=== PATIENT | female | born 1960 | race Caucasian/White ===

== ENCOUNTER 2016-09-20 19:51 | Inpatient (IN) | payer MEDICAID ==
[~2016-09-20] VITALS: Ht 157.5 cm; Wt 49.1 kg
[~2016-09-20 19:51] MED LIST: ALBU8.5H3 INH; ALPR-475 PO; ASPI-515 PO; ASPI-614 PO; ASPI-650 PO; AZIT-14 PO; AZIT500T4 PO; CEFD300C2 PO; CLOP75TA22 PO; LORA-445 PO; MAGN400T26 PO; NICO1PAT10 TD; OXYC5TAB3 PO; POLY17PO5 PO; PRED10TA PO; PRED20TA PO; THYR30TA PO; TIOT4MIS3 INH
[2016-09-20] MEDS ORDERED: ALBUTEROL SULFATE 2.5 MG/3 ML NPPB ONE (20:30)
[2016-09-20] MEDS ORDERED: ASPIRIN 81 MG TABLET CHEW PO ONE (20:30)
[2016-09-20] MEDS ORDERED: ASPIRIN 81 MG TABLET CHEW ONE (20:30)
[2016-09-20] MEDS ORDERED: ALBUTEROL SULFATE 2.5 MG/3 ML ONE (20:30)
[2016-09-20 20:45] LABS: HEMOGLOBIN 13.1 g/dL (11.7-16.4)
[2016-09-20] MEDS ORDERED: SODIUM CHLORIDE FLUSH 10ML SYR IVF ONE (21:00)
[2016-09-20] MEDS ORDERED: KETOROLAC 30 MG/1 ML IVPush ONE (21:00)
[2016-09-20] MEDS ORDERED: DIAZEPAM 5 MG TABLET PO ONE (21:00)
[2016-09-20 21:01] LABS: ASPARTATE AMINO TRANSFERASE 13 U/L (15-37); BLOOD UREA NITROGEN 8 mg/dL (7-18)
[2016-09-20 21:10] LABS: IS PT STATUS REG ER OR PRE ER? YES
[2016-09-20] MEDS ORDERED: KETOROLAC 30 MG/1 ML ONE (21:15)
[2016-09-20] MEDS ORDERED: DIAZEPAM 5 MG TABLET ONE (21:15)
[2016-09-20] MEDS: SODIUM CHLORIDE 0.9% 1,000 ML IV SCH ×2 (22:17→23:47)
[2016-09-20] MEDS ORDERED: POLYETHYLENE GLYCOL 17 GM PACKET PO PRN (22:30)
[2016-09-20] MEDS ORDERED: DOCUSATE 100 MG CAPSULE PO PRN (22:30)
[2016-09-20] MEDS ORDERED: LORazepam 1MG TABLET PO PRN (22:30)
[2016-09-20] MEDS ORDERED: ONDANSETRON 2MG/ML, 2ML IVP PRN (22:30)
[2016-09-20] MEDS: HEPARIN 5,000 UNITS/ML, 1ML SQ SCH (22:30)
[2016-09-20] MEDS ORDERED: MORPHINE SULFATE 4 MG/ML, 1ML IVPush PRN (22:30)
[2016-09-20] MEDS ORDERED: BISACODYL 10 MG SUPP PR PRN (22:30)
[2016-09-20] MEDS ORDERED: ACETAMINOPHEN 325 MG TABLET PO PRN (22:30)
[2016-09-20] MEDS: GUAIFENESIN 200 MG TABLET PO SCH (23:00)
[2016-09-20 23:09] VITALS: BP 109/73
[2016-09-20] MEDS: DOXYCYCLINE 100 MG in DEXTROSE 5% 250 ML IV SCH (23:47)
[2016-09-21 00:19] LABS: DAU SCREEN DISCLAIMER
[2016-09-21] MEDS ORDERED: ALBUTEROL SULFATE 2.5 MG/3 ML NPPB PRN (01:00)
[2016-09-21 02:18] VITALS: BP 95/62
[2016-09-21] MEDS: ALBUTEROL/IPRATROPIUM 2.5MG/0.5MG, 3 ML NPPB SCH ×5 (02:30→20:39)
[2016-09-21 03:27] LABS: HEMOGLOBIN 11.9 g/dL (11.7-16.4)
[2016-09-21 03:28] LABS: DIFF TOTAL CELLS COUNTED 100 CELL DIFF
[2016-09-21 03:51] LABS: ASPARTATE AMINO TRANSFERASE 11 U/L (15-37); BLOOD UREA NITROGEN 10 mg/dL (7-18)
[2016-09-21 03:52] LABS: IS PT STATUS REG ER OR PRE ER? NO
[2016-09-21 03:55] LABS: VERIFY COUNTS? YES
[2016-09-21] MEDS: ASPIRIN 325 MG TABLET EC PO SCH (05:23)
[2016-09-21] MEDS: GUAIFENESIN 200 MG TABLET PO SCH ×4 (05:23→20:34)
[2016-09-21] MEDS: HEPARIN 5,000 UNITS/ML, 1ML SQ SCH ×3 (05:24→22:30)
[2016-09-21] MEDS ORDERED: PANTOPROZOLE 40MG TABLET PO SCH (07:30)
[2016-09-21 07:57] VITALS: BP 118/75
[2016-09-21] MEDS: THYROID 30 MG TABLET PO SCH (08:17)
[2016-09-21] MEDS ORDERED: REGADENOSON 0.4 MG/5 ML SYRINGE ONE (08:54)
[2016-09-21] MEDS: DOXYCYCLINE 100 MG in DEXTROSE 5% 250 ML IV SCH ×2 (11:12→23:06)
[2016-09-21 12:00] LABS: IS PT STATUS REG ER OR PRE ER? NO
[2016-09-21 15:28] VITALS: BP 108/74
[2016-09-21 19:43] VITALS: BP 102/74
[2016-09-21] MEDS: DIAZEPAM 5 MG TABLET PO PRN (19:55)
[2016-09-21] MEDS: DEXAMETHASONE 4 MG/ML, 1ML IVPush SCH (20:35)
[2016-09-22] MEDS: DEXAMETHASONE 4 MG/ML, 1ML IVPush SCH ×4 (02:22→20:32)
[2016-09-22 03:42] VITALS: BP 98/64
[2016-09-22 05:43] LABS: HEMOGLOBIN 12.6 g/dL (11.7-16.4)
[2016-09-22 05:53] LABS: BLOOD UREA NITROGEN 9 mg/dL (7-18)
[2016-09-22] MEDS: GUAIFENESIN 200 MG TABLET PO SCH ×4 (06:00→20:32)
[2016-09-22] MEDS: ASPIRIN 325 MG TABLET EC PO SCH (06:04)
[2016-09-22 06:57] VITALS: BP 107/76
[2016-09-22] MEDS: ALBUTEROL/IPRATROPIUM 2.5MG/0.5MG, 3 ML NPPB SCH ×4 (07:20→21:00)
[2016-09-22] MEDS: HEPARIN 5,000 UNITS/ML, 1ML SQ SCH ×3 (09:35→22:30)
[2016-09-22] MEDS: THYROID 30 MG TABLET PO SCH (09:36)
[2016-09-22] MEDS: DIAZEPAM 5 MG TABLET PO PRN (09:50)
[2016-09-22] MEDS: DOXYCYCLINE 100 MG in DEXTROSE 5% 250 ML IV SCH ×2 (11:51→22:53)
[2016-09-22 12:39] VITALS: BP 108/74
[2016-09-22] MEDS: OXYcodone IR 5MG TABLET PO PRN ×2 (13:58→18:17)
[2016-09-22 20:44] VITALS: BP 116/72
[2016-09-23] MEDS: DEXAMETHASONE 4 MG/ML, 1ML IVPush SCH ×3 (01:42→14:00)
[2016-09-23 04:30] VITALS: BP 115/78
[2016-09-23 05:12] LABS: HEMOGLOBIN 12.7 g/dL (11.7-16.4)
[2016-09-23 05:30] LABS: BLOOD UREA NITROGEN 16 mg/dL (7-18)
[2016-09-23] MEDS: GUAIFENESIN 200 MG TABLET PO SCH ×2 (05:38→11:00)
[2016-09-23] MEDS: DIAZEPAM 5 MG TABLET PO PRN (05:44)
[2016-09-23] MEDS: ASPIRIN 325 MG TABLET EC PO SCH (05:44)
[2016-09-23] MEDS: HEPARIN 5,000 UNITS/ML, 1ML SQ SCH (06:30)
[2016-09-23 06:40] VITALS: BP 103/76
[2016-09-23] MEDS: ALBUTEROL/IPRATROPIUM 2.5MG/0.5MG, 3 ML NPPB SCH ×2 (07:20→11:25)
[2016-09-23] MEDS: THYROID 30 MG TABLET PO SCH (07:59)
[2016-09-23] MEDS ORDERED: GUAI200T3 PO (11:19)
[2016-09-23] MEDS ORDERED: DIAZ2TAB3 PO ×2 (11:19→12:51)
[2016-09-23] MEDS ORDERED: ASPI-496 PO (11:19)
[2016-09-23] MEDS ORDERED: DEXA2TAB PO (11:19)
[2016-09-23] MEDS: DOXYCYCLINE 100 MG in DEXTROSE 5% 250 ML IV SCH (11:51)
[2016-09-23] MEDS: OXYcodone IR 5MG TABLET PO PRN (12:04)
[2016-09-23 13:34] VITALS: BP 105/72
== END 2016-09-23 14:31 | disposition home or self-care (01) | DRG 192 ==
LOC: ED 22:06 → EDIP 22:11 → 5SO 23:00 → 4NOR 09-21 18:32
PROVIDERS: ADMIT Internal Medicine; ATTEND Internal Medicine
PROC: 0T9B70Z Drainage of Bladder with Drainage Device, Via Natural or Artificial Opening (ICD-10-PCS; principal; 2016-09-20)
DX: J44.0 Chronic obstructive pulmonary disease with (acute) lower respiratory infection (principal); J44.1 Chronic obstructive pulmonary disease with (acute) exacerbation; F41.9 Anxiety disorder, unspecified; E03.9 Hypothyroidism, unspecified; F15.10 Other stimulant abuse, uncomplicated; I95.9 Hypotension, unspecified; D72.829 Elevated white blood cell count, unspecified; Z87.891 Personal history of nicotine dependence; J20.9 Acute bronchitis, unspecified; Z88.8 Allergy status to other drugs, medicaments and biological substances; Z99.81 Dependence on supplemental oxygen
CPT/HCPCS: 36415; 71010; 78452; 80048; 80053; 80061; 80307; 81003; 83036; 83690; 83735; 84439; 84443; 84484; 85025; 85379; 87070; 87205; 93005; 93017; 93306; 94640; 96361; 96374; J1100; J1885; J2785; J7060; J7620; A9502; C9898; J7030

== ENCOUNTER → 2016-11-07 | Outpatient (CLI) | payer MEDICAID ==
[~2016-11-07] MED LIST changes: +ASPI-496 PO; -AZIT-14 PO; +AZIT250T89 PO; -AZIT500T4 PO; +AZIT500T77 PO; -CEFD300C2 PO; +CEFD300C37 PO; +DEXA2TAB PO; +DIAZ2TAB3 PO; +GUAI200T3 PO
== END | disposition home or self-care (01) ==
LOC: CFH 11:59
PROVIDERS: ATTEND Nurse Practitioner
DX: Z12.31 Encounter for screening mammogram for malignant neoplasm of breast (principal); M25.521 Pain in right elbow
CPT/HCPCS: 73080; 76642; G0202

== ENCOUNTER 2017-05-04 03:36 | Emergency (ER) | payer MEDICAID ==
[~2017-05-04] VITALS: Ht 157.5 cm; Wt 57.0 kg
[~2017-05-04 03:36] MED LIST changes: -ALBU8.5H3 INH; +ALBU8.5H8 INH; +AZIT500T5 PO; -AZIT500T77 PO; -CLOP75TA22 PO; +CLOP75TA52 PO; +NICO-485 TD; -NICO1PAT10 TD
[2017-05-04] MEDS ORDERED: ALBUTEROL/IPRATROPIUM 2.5MG/0.5MG, 3 ML ONE ×2 (04:13→07:30)
[2017-05-04] MEDS ORDERED: DIAZEPAM 5 MG TABLET ONE (04:20)
[2017-05-04] MEDS ORDERED: DIAZEPAM 5 MG TABLET PO ONE (04:30)
[2017-05-04] MEDS ORDERED: ALBUTEROL/IPRATROPIUM 2.5MG/0.5MG, 3 ML NPPB ONE ×2 (04:30→07:30)
[2017-05-04] MEDS ORDERED: HYDROmorphone 1 MG/ML, 1ML ONE (04:41)
[2017-05-04 04:47] LABS: HEMATOCRIT 41.3 % (34.6-47.8); HEMOGLOBIN 14.1 g/dL (11.7-16.4); WHITE BLOOD COUNT 7.5 x10^3/uL (3.4-10)
[2017-05-04 04:55] LABS: BLOOD UREA NITROGEN 4 mg/dL (7-18)
[2017-05-04] MEDS ORDERED: HYDROmorphone 1 MG/ML, 1ML IM ONE (05:00)
[2017-05-04] MEDS ORDERED: ZIPRASIDONE 20 MG INJ IM ONE ×2 (05:48→06:00)
[2017-05-04 06:20] LABS: PATH.CAST-FLAG NOT PRESENT; SPERM-FLAG NOT PRESENT; SRC-FLAG NOT PRESENT; XTAL-FLAG NOT PRESENT; YLC-FLAG NOT PRESENT
[2017-05-04 10:34] VITALS: BP 105/47
[2017-05-04] MEDS ORDERED: CLON0.5T PO (14:08)
[2017-05-04] MEDS ORDERED: ALBU0.63 NEB (14:08)
== END 2017-05-04 10:36 | disposition home or self-care (01) ==
LOC: ED 05:23
DX: S16.1XXA Strain of muscle, fascia and tendon at neck level, initial encounter (principal); G89.29 Other chronic pain; J44.1 Chronic obstructive pulmonary disease with (acute) exacerbation; E03.9 Hypothyroidism, unspecified; Z87.891 Personal history of nicotine dependence
CPT/HCPCS: 36415; 71020; 80048; 81001; 82040; 85025; 87086; 93005; 94640; 96372; 99285; J1170; J7620

== ENCOUNTER 2017-05-04 13:43 | Inpatient (IN) | payer MEDICAID ==
[~2017-05-04] VITALS: Ht 152.4 cm; Wt 62.2 kg
[2017-05-04] MEDS ORDERED: CLON0.5T PO (14:08)
[2017-05-04] MEDS ORDERED: ALBU0.63 NEB (14:08)
[2017-05-04] MEDS ORDERED: morphine SULFATE 10 MG/ML, 1ML ONE (14:18)
[2017-05-04] MEDS ORDERED: ONDANSETRON 2MG/ML, 2ML ONE (14:19)
[2017-05-04] MEDS: MORPHINE SULFATE 4 MG/ML, 1ML IVPush PRN ×2 (14:21→15:12)
[2017-05-04 14:26] LABS: HEMOGLOBIN 13.2 g/dL (11.7-16.4); WHITE BLOOD COUNT 8.6 x10^3/uL (3.4-10)
[2017-05-04] MEDS ORDERED: SODIUM CHLORIDE FLUSH 10ML SYR IVF ONE (14:30)
[2017-05-04] MEDS ORDERED: ONDANSETRON 2MG/ML, 2ML IVPush ONE (14:30)
[2017-05-04 14:35] LABS: BLOOD UREA NITROGEN 5 mg/dL (7-18)
[2017-05-04] MEDS ORDERED: SODIUM CHLORIDE FLUSH 10ML SYR IVF PRN (16:00)
[2017-05-04] MEDS ORDERED: NS + 20MEQ KCL 1,000 ML IV SCH (16:18)
[2017-05-04] MEDS ORDERED: DOCUSATE 100 MG CAPSULE PO PRN (16:30)
[2017-05-04] MEDS ORDERED: ONDANSETRON 2MG/ML, 2ML IVPush PRN (16:30)
[2017-05-04] MEDS ORDERED: POLYETHYLENE GLYCOL 17 GM PACKET PO PRN (16:30)
[2017-05-04] MEDS ORDERED: TEMPLATE NON-FORMULARY MED. (Albuterol Sulfate (Proair Hfa) 2 PUFF) INH PRN (16:30)
[2017-05-04] MEDS ORDERED: NS + 20MEQ KCL 1,000 ML IV ONE (16:35)
[2017-05-04] MEDS ORDERED: ALBUTEROL/IPRATROPIUM 2.5MG/0.5MG, 3 ML ONE (16:49)
[2017-05-04] MEDS: ALBUTEROL/IPRATROPIUM 2.5MG/0.5MG, 3 ML NPPB SCH (16:54)
[2017-05-04] MEDS ORDERED: LORazepam 1MG TABLET ONE (16:59)
[2017-05-04] MEDS: LORazepam 1MG TABLET PO PRN ×2 (17:07→23:51)
[2017-05-04] MEDS ORDERED: CEFTRIAXONE PMX 1GM/50ML 50 ML ONE (17:23)
[2017-05-04] MEDS: CEFTRIAXONE PMX 1GM/50ML 50 ML IV SCH (17:28)
[2017-05-04] MEDS ORDERED: ALBUTEROL SULFATE 2.5 MG/3 ML NPPB PRN (17:30)
[2017-05-04] MEDS: HYDROcodone/APAP 5/325 TABLET PO PRN (18:41)
[2017-05-04 19:11] VITALS: BP 111/75
[2017-05-04] MEDS: ENOXAPARIN 40 MG/0.4 ML SQ SCH (20:02)
[2017-05-04] MEDS: DOXYCYCLINE 100 MG in DEXTROSE 5% 250 ML IV SCH (21:55)
[2017-05-04] MEDS: GUAIFENESIN/DM 200-20MG, 10ML UDC PO PRN (23:30)
[2017-05-04] MEDS: ALBUTEROL SULFATE 2.5 MG/3 ML HHN PRN ×2 (23:45→23:50)
[2017-05-05 00:06] VITALS: BP 124/80
[2017-05-05] MEDS: ALBUTEROL/IPRATROPIUM 2.5MG/0.5MG, 3 ML NPPB SCH ×4 (03:48→19:14)
[2017-05-05] MEDS: ACETAMINOPHEN 325 MG TABLET PO PRN ×2 (04:17→12:16)
[2017-05-05] MEDS: LORazepam 1MG TABLET PO PRN ×4 (04:17→23:58)
[2017-05-05 08:27] VITALS: BP 103/66
[2017-05-05] MEDS: THYROID 30 MG TABLET PO SCH (09:00)
[2017-05-05] MEDS: DOXYCYCLINE 100 MG in DEXTROSE 5% 250 ML IV SCH ×2 (09:00→21:56)
[2017-05-05] MEDS: GUAIFENESIN/DM 200-20MG, 10ML UDC PO PRN (09:38)
[2017-05-05 12:49] VITALS: BP 113/71
[2017-05-05] MEDS: CEFTRIAXONE PMX 1GM/50ML 50 ML IV SCH (16:46)
[2017-05-05] MEDS: HYDROcodone/APAP 5/325 TABLET PO PRN (16:46)
[2017-05-05 20:14] VITALS: BP 113/63
[2017-05-05] MEDS: ENOXAPARIN 40 MG/0.4 ML SQ SCH (21:57)
[2017-05-05] MEDS: ALBUTEROL SULFATE 2.5 MG/3 ML HHN PRN (22:57)
[2017-05-06 01:35] VITALS: BP 97/61
[2017-05-06] MEDS: ALBUTEROL/IPRATROPIUM 2.5MG/0.5MG, 3 ML NPPB SCH ×5 (03:00→18:35)
[2017-05-06] MEDS: ACETAMINOPHEN 325 MG TABLET PO PRN (03:09)
[2017-05-06] MEDS: LORazepam 1MG TABLET PO PRN ×3 (04:27→20:26)
[2017-05-06 04:56] LABS: HEMATOCRIT 31.9 % (34.6-47.8); HEMOGLOBIN 10.8 g/dL (11.7-16.4); WHITE BLOOD COUNT 5.4 x10^3/uL (3.4-10)
[2017-05-06 05:09] LABS: BLOOD UREA NITROGEN 5 mg/dL (7-18)
[2017-05-06] MEDS: THYROID 30 MG TABLET PO SCH (07:25)
[2017-05-06 08:00] VITALS: BP_SYST 108; BP_SYST 98; BP_DIAS 61; BP_DIAS 70
[2017-05-06] MEDS: DOXYCYCLINE 100 MG in DEXTROSE 5% 250 ML IV SCH ×2 (09:00→21:39)
[2017-05-06] MEDS: BUTALB/APAP/CAFFEINE 50MG/325MG/40MG PO PRN ×2 (11:06→20:26)
[2017-05-06 15:39] VITALS: BP 119/77
[2017-05-06] MEDS: CEFTRIAXONE PMX 1GM/50ML 50 ML IV SCH (16:10)
[2017-05-06 20:05] VITALS: BP 105/75
[2017-05-06] MEDS: ALBUTEROL SULFATE 2.5 MG/3 ML HHN PRN (20:33)
[2017-05-06] MEDS: ENOXAPARIN 40 MG/0.4 ML SQ SCH (21:39)
[2017-05-07] MEDS: ALBUTEROL SULFATE 2.5 MG/3 ML HHN PRN ×2 (00:19→03:37)
[2017-05-07] MEDS: LORazepam 1MG TABLET PO PRN ×3 (00:51→09:24)
[2017-05-07] MEDS: GUAIFENESIN/DM 200-20MG, 10ML UDC PO PRN ×2 (00:51→06:49)
[2017-05-07 03:03] VITALS: BP 107/68
[2017-05-07] MEDS: BUTALB/APAP/CAFFEINE 50MG/325MG/40MG PO PRN (03:21)
[2017-05-07 05:11] LABS: HEMATOCRIT 34.3 % (34.6-47.8); HEMOGLOBIN 11.5 g/dL (11.7-16.4); WHITE BLOOD COUNT 4.8 x10^3/uL (3.4-10)
[2017-05-07 05:13] LABS: BLOOD UREA NITROGEN 3 mg/dL (7-18)
[2017-05-07] MEDS: ALBUTEROL/IPRATROPIUM 2.5MG/0.5MG, 3 ML NPPB SCH ×2 (06:19→10:06)
[2017-05-07 08:30] VITALS: BP 101/64
[2017-05-07] MEDS: DOXYCYCLINE 100 MG in DEXTROSE 5% 250 ML IV SCH (09:24)
[2017-05-07] MEDS: THYROID 30 MG TABLET PO SCH (09:24)
[2017-05-07] MEDS ORDERED: CEFD300C37 PO (10:49)
[2017-05-07] MEDS ORDERED: ALBU8.5H8 INH (10:49)
== END 2017-05-07 12:33 | disposition home health service (06) | DRG 872 ==
LOC: ED 15:57 → EDIP 15:58 → SUATTDRO 16:04 → ED 16:06 → 4NOR 18:26
PROVIDERS: ADMIT Family Medicine; ATTEND Family Medicine
DX: A41.9 Sepsis, unspecified organism (principal); E87.1 Hypo-osmolality and hyponatremia; J44.1 Chronic obstructive pulmonary disease with (acute) exacerbation; E03.9 Hypothyroidism, unspecified; F41.9 Anxiety disorder, unspecified; Z53.20 Procedure and treatment not carried out because of patient's decision for unspecified reasons; Z80.0 Family history of malignant neoplasm of digestive organs; Z82.5 Family history of asthma and other chronic lower respiratory diseases; Z83.3 Family history of diabetes mellitus; Z87.891 Personal history of nicotine dependence
CPT/HCPCS: 36415; 70490; 71250; 74176; 80048; 82040; 83605; 85025; 87040; 93005; 94640; 96361; 96365; 96375; J0696; J1650; J2405; J3480; J7060; J7613; J7620

== ENCOUNTER → 2017-12-02 | Outpatient (CLI) | payer MEDICAID ==
[~2017-12-02] MED LIST changes: +ALBU0.63 NEB; +CLON0.5T PO
== END ==
LOC: CFH 11:57
PROVIDERS: ATTEND Nurse Practitioner
DX: Z12.31 Encounter for screening mammogram for malignant neoplasm of breast (principal)
CPT/HCPCS: 76377; 76642; 77063; 77067

== ENCOUNTER 2018-01-20 15:51 | Emergency (ER) | payer MEDICAID ==
[~2018-01-20] VITALS: Ht 157.5 cm; Wt 56.8 kg
[2018-01-20 16:53] LABS: MICROSCOPIC NOT IND
[2018-01-20 16:56] LABS: CULTURE INDICATED? NO
[2018-01-20] MEDS ORDERED: ALBUTEROL SULFATE 2.5 MG/3 ML ONE (17:17)
[2018-01-20 17:24] LABS: BASOPHILS # (AUTO) 0.05 x10^3/uL (0-0.1); BASOPHILS % (AUTO) 1 % (0-1); EOSINOPHILS # (AUTO) 0.04 x10^3/uL (0-0.4); EOSINOPHILS % (AUTO) 1 % (1-7); LYMPHOCYTES # (AUTO) 1.14 x10^3/uL (1-3.4); LYMPHOCYTES % (AUTO) 20 % (22-44); MD NO; MEAN CORPUSCULAR HEMOGLOBIN 30.1 pg (27.0-34.8); MEAN CORPUSCULAR HGB CONC 33.2 g/dL (32.4-35.8); MEAN CORPUSCULAR VOLUME 90.7 fL (80-100); MONOCYTES # (AUTO) 0.27 x10^3/uL (0.2-0.8); MONOCYTES % (AUTO) 5 % (2-9); NEUTROPHILS # (AUTO) 4.06 x10^3/uL (1.8-6.8); NEUTROPHILS % (AUTO) 73 % (42-75); PLATELET COUNT 325 x10^3/uL (130-400); RED BLOOD COUNT 4.54 x10^6/uL (3.82-5.3); RED CELL DISTRIBUTION WIDTH 14.1 % (9.6-15.2)
[2018-01-20] MEDS ORDERED: ALBUTEROL SULFATE 2.5 MG/3 ML NPPB ONE (17:30)
[2018-01-20 17:35] LABS: ANION GAP 5 mmol/L (5-15); CALCIUM 9.8 mg/dL (8.5-10.1); CHLORIDE 109 mmol/L (98-107)
[2018-01-20 17:38] LABS: ALANINE AMINOTRANSFERASE 35 U/L (12-78); ALKALINE PHOSPHATASE 64 U/L (45-117); BILIRUBIN,TOTAL 0.3 mg/dL (0.2-1.0); CREATININE 0.62 mg/dL (0.55-1.02); TOTAL PROTEIN 7.1 g/dL (6.4-8.2)
[2018-01-20 18:55] VITALS: BP 115/56
== END 2018-01-20 18:57 | disposition home or self-care (01) ==
LOC: ED 18:27
DX: J44.1 Chronic obstructive pulmonary disease with (acute) exacerbation (principal); J96.90 Respiratory failure, unspecified, unspecified whether with hypoxia or hypercapnia; E03.9 Hypothyroidism, unspecified; Z87.891 Personal history of nicotine dependence
CPT/HCPCS: 36415; 71046; 80053; 81003; 85025; 85379; 93005; 94640; 99285; J7613

== ENCOUNTER → 2018-01-20 | Outpatient (CLI) | payer MEDICAID | END | disposition home or self-care (01) | LOC: CFH 13:35 | PROVIDERS: ATTEND Internal Medicine Cardiovascular Disease | DX: J44.9 Chronic obstructive pulmonary disease, unspecified (principal); R07.9 Chest pain, unspecified; Z87.891 Personal history of nicotine dependence | CPT/HCPCS: 93306 ==

== ENCOUNTER → 2018-07-12 | Outpatient (CLI) | payer MEDICAID | END | disposition home or self-care (01) | LOC: CFH 09:40 | PROVIDERS: ATTEND Nurse Practitioner Family | DX: K82.4 Cholesterolosis of gallbladder (principal); Z72.89 Other problems related to lifestyle; Z87.891 Personal history of nicotine dependence | CPT/HCPCS: 76700 ==

== ENCOUNTER → 2018-08-13 | Outpatient (CLI) | payer MEDICAID | END | disposition home or self-care (01) | LOC: CVU 06:51 | PROVIDERS: ATTEND Internal Medicine Cardiovascular Disease | DX: I77.89 Other specified disorders of arteries and arterioles (principal); I65.23 Occlusion and stenosis of bilateral carotid arteries; E03.9 Hypothyroidism, unspecified; F15.10 Other stimulant abuse, uncomplicated; J44.9 Chronic obstructive pulmonary disease, unspecified | CPT/HCPCS: 93880 ==

== ENCOUNTER → 2018-09-14 | Outpatient (CLI) | payer MEDICAID ==
[~2018-09-14] MED LIST changes: +ALBU18HF INH; +ALPR1TAB2 PO; +ASCO1TAB4 PO; +BETA10003 PO; +CALC-534 PO; +CHOL200024 PO; +CLEAR LUNGS PO; +INDA1CAP2 INH; +IPRA3AMP30 NEB; +LEMON BALM PO; +METH4TAB2 PO; +MULT-658 PO; +OMEG-76 PO; +OREG1500 PO; +PAPA1TAB8 PO; +PEPPERMINT PO; +POTA99TA2 PO; +SELE200T10 PO; +UBID60CA2 PO; +VITA10004 PO; +VITA1TAB19 PO; +VITA400C43 PO; +magnesium PO; +red clover PO
== END | disposition home or self-care (01) ==
LOC: STAR 09:41
PROVIDERS: ATTEND Internal Medicine
DX: Z01.811 Encounter for preprocedural respiratory examination (principal); J44.9 Chronic obstructive pulmonary disease, unspecified; R06.02 Shortness of breath
CPT/HCPCS: 71046; 93005

== ENCOUNTER 2018-09-24 09:56 | Day surgery (SDC) | payer MEDICAID ==
[~2018-09-24] VITALS: Ht 154.9 cm; Wt 56.4 kg
[2018-09-24 10:23] VITALS: BP 99/60
[2018-09-24] MEDS ORDERED: LACTATED RINGERS 1,000 ML IV SCH (10:23)
[2018-09-24] MEDS ORDERED: LIDOCAINE-MPF 2% ,5ML ONE (11:24)
[2018-09-24] MEDS ORDERED: PROPOFOL 10 MG/ML, 20ML ONE (11:24)
[2018-09-24] MEDS ORDERED: ONDANSETRON 2MG/ML, 2ML IV PRN (12:00)
[2018-09-24] MEDS ORDERED: ACETAMINOPHEN 325 MG TABLET PO PRN (12:00)
[2018-09-24] MEDS ORDERED: LORazepam 2 MG/ML, 1ML IVPush PRN (12:00)
[2018-09-24] MEDS ORDERED: FENTANYL PF 100 MCG/2ML IV PRN (12:00)
[2018-09-24] MEDS ORDERED: ONDANSETRON ODT 8 MG PO PRN (12:00)
[2018-09-24] MEDS ORDERED: OXYcodone 5 MG/5 ML ORAL.SOL UDC PO PRN (12:00)
== END 2018-09-24 13:50 | disposition home or self-care (01) ==
LOC: OUT 09:56
PROVIDERS: ATTEND Internal Medicine
DX: Z09 Encounter for follow-up examination after completed treatment for conditions other than malignant neoplasm (principal); K29.50 Unspecified chronic gastritis without bleeding; K57.30 Diverticulosis of large intestine without perforation or abscess without bleeding; K31.89 Other diseases of stomach and duodenum; Z86.010 Personal history of colon polyps; I10 Essential (primary) hypertension; J44.9 Chronic obstructive pulmonary disease, unspecified; Z88.8 Allergy status to other drugs, medicaments and biological substances
CPT/HCPCS: 43239; 45378; 88305; J2704; J3490; J7120

== ENCOUNTER → 2018-11-03 | Outpatient (CLI) | payer MEDICAID | END | disposition home or self-care (01) | LOC: CFH 08:24 | PROVIDERS: ATTEND Obstetrics & Gynecology Female Pelvic Medicine and Reconstructive Surgery | DX: N63.20 Unspecified lump in the left breast, unspecified quadrant (principal); N64.4 Mastodynia | CPT/HCPCS: 76641; 77066; G0279 ==

== ENCOUNTER 2018-12-08 19:29 | Emergency (ER) | payer MEDICAID ==
[~2018-12-08] VITALS: Ht 154.9 cm; Wt 55.7 kg
[2018-12-08 19:37] VITALS: BP 126/76
[2018-12-08 20:33] LABS: BASOPHILS # (AUTO) 0.02 x10^3/uL (0-0.1); BASOPHILS % (AUTO) 0 % (0-1); EOSINOPHILS # (AUTO) 0.06 x10^3/uL (0-0.4); EOSINOPHILS % (AUTO) 1 % (1-7); LYMPHOCYTES # (AUTO) 1.11 x10^3/uL (1-3.4); LYMPHOCYTES % (AUTO) 23 % (22-44); MD NO; MEAN CORPUSCULAR HEMOGLOBIN 29.9 pg (27.0-34.8); MEAN CORPUSCULAR HGB CONC 32.9 g/dL (32.4-35.8); MEAN PLATELET VOLUME 7.1 fL (7.4-10.4); MONOCYTES # (AUTO) 0.28 x10^3/uL (0.2-0.8); MONOCYTES % (AUTO) 6 % (2-9); NEUTROPHILS # (AUTO) 3.44 x10^3/uL (1.8-6.8); NEUTROPHILS % (AUTO) 70 % (42-75); PLATELET COUNT 283 x10^3/uL (130-400); RED CELL DISTRIBUTION WIDTH 14.8 % (9.6-15.2)
[2018-12-08 20:45] LABS: ALANINE AMINOTRANSFERASE 29 U/L (12-78); ALBUMIN 3.9 g/dL (3.4-5.0); ANION GAP 4 mmol/L (5-15); CALCIUM 8.7 mg/dL (8.5-10.1); CHLORIDE 107 mmol/L (98-107); CREATININE 0.78 mg/dL (0.55-1.02)
[2018-12-08 20:49] LABS: ALKALINE PHOSPHATASE 76 U/L (45-117); TOTAL PROTEIN 7.1 g/dL (6.4-8.2); TROPONIN I < 0.015 ng/mL (0.000-0.045)
[2018-12-08 20:52] LABS: BILIRUBIN,TOTAL < 0.1 mg/dL (0.2-1.0)
[2018-12-08] MEDS ORDERED: ALBUTEROL SULFATE 2.5 MG/3 ML NPPB ONE (23:30)
== END 2018-12-09 00:34 | disposition home or self-care (01) ==
LOC: ED 22:47
DX: J44.1 Chronic obstructive pulmonary disease with (acute) exacerbation (principal); Z87.891 Personal history of nicotine dependence; E03.9 Hypothyroidism, unspecified
CPT/HCPCS: 36415; 71045; 80053; 84484; 85025; 93005; 94640; 99284; J7613

== ENCOUNTER 2018-12-16 15:13 | Emergency (ER) | payer MEDICAID ==
[~2018-12-16] VITALS: Ht 154.9 cm; Wt 56.7 kg
[2018-12-16] MEDS ORDERED: SODIUM CHLORIDE FLUSH 10ML SYR IVF ONE (15:30)
[2018-12-16 15:33] LABS: BASOPHILS # (AUTO) 0.06 x10^3/uL (0-0.1); BASOPHILS % (AUTO) 1 % (0-1); EOSINOPHILS # (AUTO) 0.08 x10^3/uL (0-0.4); EOSINOPHILS % (AUTO) 1 % (1-7); LYMPHOCYTES # (AUTO) 0.73 x10^3/uL (1-3.4); LYMPHOCYTES % (AUTO) 10 % (22-44); MD NO; MEAN CORPUSCULAR HEMOGLOBIN 29.3 pg (27.0-34.8); MEAN CORPUSCULAR HGB CONC 32.4 g/dL (32.4-35.8); MEAN CORPUSCULAR VOLUME 90.2 fL (80-100); MEAN PLATELET VOLUME 6.4 fL (7.4-10.4); MONOCYTES # (AUTO) 0.27 x10^3/uL (0.2-0.8); MONOCYTES % (AUTO) 4 % (2-9); NEUTROPHILS # (AUTO) 6.32 x10^3/uL (1.8-6.8); NEUTROPHILS % (AUTO) 85 % (42-75); PLATELET COUNT 242 x10^3/uL (130-400); RED BLOOD COUNT 4.33 x10^6/uL (3.82-5.3); RED CELL DISTRIBUTION WIDTH 15.3 % (9.6-15.2)
--- NOTE | 2018-12-16 15:35 | NUR ---
PT TO ROOM 14 W/ C/O DYSPNEA PT STATES WORSENED RECENTLY. PT STATES SHE WAS DX W/ FUNGUS IN THE LUNGS AND WAS PLACED ON ANTIFUNGALS THAT PT STATES DID NOT HELP W/ IMPROVEMENT. PT STATES SHE FEELS THE SAME. PT ALSO HAS HX STAGE 4 COPD. PT RESTING ON GURNEY. IS PROVIDED. MONITORS APPLIED.
--- NOTE | 2018-12-16 15:43 | NUR ---
RT NOTIFIED OF PT REQUEST FOR LUNG FLUTE. RT TO COME TO PT BEDSIDE.
[2018-12-16] MEDS: ALBUTEROL/IPRATROPIUM 2.5MG/0.5MG, 3 ML NPPB SCH ×2 (15:45→16:30)
[2018-12-16 15:46] LABS: TROPONIN I < 0.015 ng/mL (0.000-0.045)
[2018-12-16] MEDS ORDERED: ALBUTEROL/IPRATROPIUM 2.5MG/0.5MG, 3 ML ONE (15:50)
--- NOTE | 2018-12-16 15:54 | NUR ---
RT AT BEDSIDE.
--- NOTE | 2018-12-16 16:10 | NUR ---
PT TAKEN FOR CTA.
[2018-12-16] MEDS ORDERED: OMNIPAQUE 350 MG/ML, 100ML BOTTLE ONE (16:44)
--- NOTE | 2018-12-16 17:11 | NUR ---
PT RESTING ON GURNEY. NADN. MALAVE. PT CHART REVIEWED AND PLACED FOR RECHECK.
--- NOTE | 2018-12-16 18:17 | NUR ---
PT RESTING ON GURNEY. JO. VSS. ERP NOTIFIED PT PLACED FOR RECHECK.
--- NOTE | 2018-12-16 18:39 | NUR ---
ERP DR. BOLES AT BEDSIDE.
[2018-12-16 18:46] VITALS: BP 97/64
--- NOTE | 2018-12-16 19:01 | NUR ---
REPORT GIVEN TO ROSENDO CLEMENTS RN.
== END 2018-12-16 19:16 | disposition home or self-care (01) ==
LOC: ED 16:10
DX: J44.1 Chronic obstructive pulmonary disease with (acute) exacerbation (principal); F41.1 Generalized anxiety disorder; E03.9 Hypothyroidism, unspecified
CPT/HCPCS: 36415; 71275; 84484; 85025; 93005; 94640; 99284; J7620; Q9967

== ENCOUNTER → 2018-12-21 | Outpatient (CLI) | payer MEDICAID | END | disposition home or self-care (01) | LOC: CFH 08:49 | PROVIDERS: ATTEND Nurse Practitioner Family | DX: K82.4 Cholesterolosis of gallbladder (principal); R14.0 Abdominal distension (gaseous) | CPT/HCPCS: 76700 ==

== ENCOUNTER 2019-02-07 10:54 | Emergency (ER) | payer MEDICAID ==
[~2019-02-07] VITALS: Ht 154.9 cm; Wt 56.0 kg
[~2019-02-07 10:54] MED LIST changes: -ALPR-475 PO; +ALPR0.5T7 PO; -GUAI200T3 PO; +GUAI200T37 PO
--- NOTE | 2019-02-07 11:14 | NUR ---
PT BIB [facility] FOR WEAKNESS AND DIZZINESS SINCE LAST NIGHT. PT STATES SHE "JUST ISN'T BREATHING WELL AND I JUST DON'T FEEL GOOD." PT CONNECTED TO MONIOTRS. VSS ON RA. DR. AQUINO TO BS FOR ASSESSMENT. AWAITING ORDERS.
--- NOTE | 2019-02-07 11:23 | NUR ---
pt states she took xanax in the ambulance on the way here. Dr. Jang notified. verbal order to hold ativan at this time.
--- NOTE | 2019-02-07 11:29 | NUR ---
Imaging and lab to kiara.
[2019-02-07] MEDS ORDERED: LORazepam 1MG TABLET PO ONE (11:30)
[2019-02-07 12:00] LABS: BASOPHILS # (AUTO) 0.05 x10^3/uL (0-0.1); BASOPHILS % (AUTO) 2 % (0-1); EOSINOPHILS # (AUTO) 0.12 x10^3/uL (0-0.4); EOSINOPHILS % (AUTO) 3 % (1-7); LYMPHOCYTES % (AUTO) 20 % (22-44); MD NO; MEAN CORPUSCULAR HEMOGLOBIN 29.1 pg (27.0-34.8); MEAN CORPUSCULAR HGB CONC 32.4 g/dL (32.4-35.8); MEAN CORPUSCULAR VOLUME 89.8 fL (80-100); MEAN PLATELET VOLUME 6.7 fL (7.4-10.4); MONOCYTES # (AUTO) 0.21 x10^3/uL (0.2-0.8); MONOCYTES % (AUTO) 6 % (2-9); NEUTROPHILS # (AUTO) 2.39 x10^3/uL (1.8-6.8); NEUTROPHILS % (AUTO) 69 % (42-75); PLATELET COUNT 244 x10^3/uL (130-400); RED BLOOD COUNT 4.26 x10^6/uL (3.82-5.3); RED CELL DISTRIBUTION WIDTH 14.5 % (9.6-15.2)
[2019-02-07 12:03] LABS: ALBUMIN 3.7 g/dL (3.4-5.0); ANION GAP 5 mmol/L (5-15); CALCIUM 8.3 mg/dL (8.5-10.1); CHLORIDE 103 mmol/L (98-107)
[2019-02-07 12:08] LABS: TROPONIN I < 0.015 ng/mL (0.000-0.045)
--- NOTE | 2019-02-07 13:01 | NUR ---
PT UP TO RR WITH STANDBY ASSIST FROM RN WITH STEADY GAIT. PT STATES DIZZINESS IS GONE. PT ABLE TO PROVIDE UA. SAMPLE COLLECTED AND SENT. PT NOW RESTING IN ROOM. VSS. NO NEEDS EXPRESSED. ALL BELONGINGS WITHIN REACH. CALL LIGHT WITHIN REACH. AWAITING RESULTS.
--- NOTE | 2019-02-07 13:10 | NUR ---
pt requesting breathing treatment. Dr. Jang aware. awaiting orders.
[2019-02-07] MEDS ORDERED: ALBUTEROL/IPRATROPIUM 2.5MG/0.5MG, 3 ML ONE (13:25)
[2019-02-07 13:27] LABS: MICROSCOPIC NOT IND
[2019-02-07 13:29] LABS: CULTURE INDICATED? NO
[2019-02-07] MEDS ORDERED: ALBUTEROL SULFATE 2.5 MG/3 ML NPPB ONE (13:30)
[2019-02-07] MEDS ORDERED: IPRATROPIUM 0.5 MG/2.5 ML INHA NPPB ONE (13:30)
[2019-02-07 14:03] VITALS: BP 112/79
== END 2019-02-07 14:47 | disposition home or self-care (01) ==
LOC: ED 12:31
DX: R42 Dizziness and giddiness (principal); F41.1 Generalized anxiety disorder; J43.9 Emphysema, unspecified; R19.7 Diarrhea, unspecified; R53.1 Weakness; E03.9 Hypothyroidism, unspecified
CPT/HCPCS: 36415; 71045; 80048; 81003; 82040; 83735; 84443; 84484; 85025; 93005; 94640; 99284; J7613; J7644

== ENCOUNTER 2019-04-25 14:27 | Outpatient (CLI) | payer MEDICAID | END 2019-04-25 23:59 | disposition home or self-care (01) | LOC: CFH 14:27 | PROVIDERS: ATTEND Nurse Practitioner | DX: D17.9 Benign lipomatous neoplasm, unspecified (principal) ==

== ENCOUNTER 2019-04-27 13:19 | Outpatient (CLI) | payer MEDICAID ==
[~2019-04-27 13:19] MED LIST changes: +AZIT500T10 PO; -AZIT500T5 PO
== END 2019-04-27 23:59 | disposition home or self-care (01) ==
LOC: CFH 13:19
PROVIDERS: ATTEND Nurse Practitioner Family
DX: I07.1 Rheumatic tricuspid insufficiency (principal); J44.9 Chronic obstructive pulmonary disease, unspecified
CPT/HCPCS: 93306

== ENCOUNTER 2019-06-18 15:44 | Emergency (ER) | payer MEDICAID ==
[~2019-06-18] VITALS: Ht 154.9 cm; Wt 56.4 kg
[2019-06-18 16:51] LABS: BASOPHILS # (AUTO) 0.03 x10^3/uL (0-0.1); BASOPHILS % (AUTO) 0 % (0-1); EOSINOPHILS % (AUTO) 3 % (1-7); LYMPHOCYTES # (AUTO) 1.27 x10^3/uL (1-3.4); LYMPHOCYTES % (AUTO) 21 % (22-44); MD NO; MEAN CORPUSCULAR HGB CONC 33.2 g/dL (32.4-35.8); MEAN CORPUSCULAR VOLUME 90.2 fL (80-100); MEAN PLATELET VOLUME 7.1 fL (7.4-10.4); MONOCYTES # (AUTO) 0.39 x10^3/uL (0.2-0.8); MONOCYTES % (AUTO) 6 % (2-9); NEUTROPHILS # (AUTO) 4.31 x10^3/uL (1.8-6.8); NEUTROPHILS % (AUTO) 70 % (42-75); PLATELET COUNT 258 x10^3/uL (130-400); RED BLOOD COUNT 4.66 x10^6/uL (3.82-5.3); RED CELL DISTRIBUTION WIDTH 13.8 % (9.6-15.2)
[2019-06-18 16:56] LABS: MICROSCOPIC NOT IND
[2019-06-18 16:58] LABS: ALANINE AMINOTRANSFERASE 42 U/L (12-78); ALBUMIN 3.9 g/dL (3.4-5.0); ANION GAP 5 mmol/L (5-15); CHLORIDE 104 mmol/L (98-107); CREATININE 0.74 mg/dL (0.55-1.02)
[2019-06-18 17:02] LABS: CULTURE INDICATED? NO
--- NOTE | 2019-06-18 17:02 | NUR ---
PT UPRIGHT ON GURNEY AWAKE, CALM & COMFORTABLE, RESPONDS APPROP TO STAFF, NAD, COMFORT MEASURES PROVIDED, CALL LIGHT WITHIN REACH.
[2019-06-18 17:09] LABS: ALKALINE PHOSPHATASE 85 U/L (45-117); BILIRUBIN,TOTAL 0.3 mg/dL (0.2-1.0); TOTAL PROTEIN 7.4 g/dL (6.4-8.2)
[2019-06-18 18:00] VITALS: BP 110/73
--- NOTE | 2019-06-18 18:00 | NUR ---
PT REMAINS [place] ON [place] AWAKE, CALM & COMFORTABLE, RESPONDS APPROP TO STAFF, NAD, COMFORT MEASURES PROVIDED, CALL LIGHT WITHIN REACH.
--- NOTE | 2019-06-18 18:47 | NUR ---
Patient given discharge instructions and they have confirmed that they understand the instructions. Patient ambulatory with steady gait.
== END 2019-06-18 18:55 | disposition home or self-care (01) ==
LOC: ED 17:42
DX: R42 Dizziness and giddiness (principal); J44.9 Chronic obstructive pulmonary disease, unspecified; E03.9 Hypothyroidism, unspecified; R53.1 Weakness; Z87.891 Personal history of nicotine dependence; Z87.09 Personal history of other diseases of the respiratory system
CPT/HCPCS: 36415; 80053; 81003; 84439; 84443; 85025; 93005; 99284

== ENCOUNTER 2019-09-10 00:07 | Observation (INO) | payer MEDICAID ==
[~2019-09-10] VITALS: Ht 154.9 cm; Wt 62.0 kg
--- NOTE | 2019-09-10 00:10 | NUR ---
BIB [facility] W CO SOB AND R CHEST 'PRESSURE AND HEAVINESS' X SEVERAL DAYS, WORSENING TODAY. +DRY COUGH. "MY RIGHT LUNG IS MY BAD LUNG, I JUST FEEL LIKE THERE IS SOMETHING CLOGGED IN THERE". HX OF COPD, HAS USED HOME BREATHING TX WO IMPROVEMENT. PT ARRIVES IN TRIPOD POSITION, SPEAKING IN FULL SENTENCES, LIPS PALE. SPO2 91% ON RA. DENIES FEVER. BP/SPO2/ECG MONITORING IN PLACE. EKG COMPLETED UPON ARRIVAL. RT CALLED FOR CONSULT/TREATMENT.
[2019-09-10] MEDS ORDERED: ALBUTEROL 0.5%, 20ML ONE (00:44)
--- NOTE | 2019-09-10 00:53 | NUR ---
RT IN ROOM AT THIS TIME PROVIDING BREATHING TX.
--- NOTE | 2019-09-10 00:53 | NUR ---
ERMD IN ROOM AT THIS TIME TO ELIZABETH BEAL.
[2019-09-10] MEDS ORDERED: methylPREDNISolone SOD SUCC 125 MG/2 ML ONE (01:04)
--- NOTE | 2019-09-10 01:08 | NUR ---
TASK RN: XRAY COMPLETE. PT INCREASINGLY ANXIOUS. RR 20'S SPO2 90 ON RA. PLACED ON 3L BY NC FOR SUPPORT, SPO2 TO 94. PT MEDICATED PER EMAR. ASSISTED PT TO BEDSIDE COMMODE AND BACK TO BED. PRIMAR RN AWARE
[2019-09-10 01:22] LABS: BASOPHILS # (AUTO) 0.03 x10^3/uL (0-0.1); BASOPHILS % (AUTO) 1 % (0-1); EOSINOPHILS # (AUTO) 0.08 x10^3/uL (0-0.4); EOSINOPHILS % (AUTO) 2 % (1-7); LYMPHOCYTES % (AUTO) 22 % (22-44); MD NO; MEAN CORPUSCULAR HEMOGLOBIN 29.4 pg (27.0-34.8); MEAN CORPUSCULAR HGB CONC 33.3 g/dL (32.4-35.8); MEAN CORPUSCULAR VOLUME 88.3 fL (80-100); MEAN PLATELET VOLUME 6.6 fL (7.4-10.4); MONOCYTES # (AUTO) 0.29 x10^3/uL (0.2-0.8); MONOCYTES % (AUTO) 7 % (2-9); NEUTROPHILS # (AUTO) 2.81 x10^3/uL (1.8-6.8); NEUTROPHILS % (AUTO) 68 % (42-75); PLATELET COUNT 252 x10^3/uL (130-400); RED BLOOD COUNT 4.51 x10^6/uL (3.82-5.3); RED CELL DISTRIBUTION WIDTH 13.5 % (9.6-15.2)
[2019-09-10] MEDS ORDERED: LORazepam 2 MG/ML, 1ML ONE ×2 (01:23→02:40)
[2019-09-10] MEDS: methylPREDNISolone SOD SUCC 40 MG/ML IVPush ONE ×2 (01:27→01:30)
[2019-09-10] MEDS ORDERED: methylPREDNISolone SOD SUCC 125 MG/2 ML IVPush ONE (01:30)
[2019-09-10] MEDS ORDERED: LORazepam 2 MG/ML, 1ML IVPush ONE ×2 (01:30→03:00)
[2019-09-10] MEDS ORDERED: SODIUM CHLORIDE 0.9% 1,000ML IVBOLUS ONE (01:30)
[2019-09-10] MEDS ORDERED: ALBUTEROL 0.5%, 20ML NPPB SCH (01:30)
[2019-09-10 01:34] LABS: ALANINE AMINOTRANSFERASE 35 U/L (12-78); ALBUMIN 3.9 g/dL (3.4-5.0); ANION GAP 8 mmol/L (5-15); CALCIUM 8.9 mg/dL (8.5-10.1); CHLORIDE 101 mmol/L (98-107); CREATININE 0.59 mg/dL (0.55-1.02)
[2019-09-10 01:38] LABS: ALKALINE PHOSPHATASE 66 U/L (45-117); BILIRUBIN,TOTAL 0.5 mg/dL (0.2-1.0); TOTAL PROTEIN 7.1 g/dL (6.4-8.2); TROPONIN I < 0.015 ng/mL (0.000-0.045)
--- NOTE | 2019-09-10 01:53 | NUR ---
REPORT RECEIVED AND CARE ASSUMED. PT SITTING ON SIDE OF BED. STATES UNABLE TO SIT BACK IN BED. STATES SHE IS NOT FEELING BETTER AFTER BREATHING TX AND MEDS. PT SPEAKING FULL SENTENCES WITH NO DIFFICULTY. CHART UP FOR RECHECK. AWAITING FURTHER DISPO.
--- NOTE | 2019-09-10 01:53 | NUR ---
REPORT GIVEN TO KEARA HAILE.
--- NOTE | 2019-09-10 02:15 | NUR ---
PT BLAST FURNACE CHECKER LIGHT. STATES SHE DOES NOT FEEL WELL ENOUGH TO GO HOME. STATES SHE IS RUNNING A FEVER--98.1 AT THIS TIME. STATES ATIVAN DID NOT HELP HER. ERP TO BE UPDATED, PT IS UP FOR RECHECK. CALL LIGHT IN REACH.
--- NOTE | 2019-09-10 02:35 | NUR ---
PT CONTINUES WITH ANXIETY. STATES SHE HAS A MUCOUS PLUG THAT SHE CAN'T COUGH UP. STATES SHE HASN'T EATEN ANYTHING TODAY AND IF HER FSBS DROPS BELOW 90 SHE WILL PASS OUT. GLUCOSE WAS 103 @ 0100. PT GIVEN CRANBERRY JUICE PER REQUEST. PT UNABLE TO SIT STILL. NO ACUTE RESP DISTRESS NOTED. PT SPEAKING IN FULL SENTENCES. NSR ON MONITOR. VSS. DISCUSSED WITH ERP AND ORDER FOR REPEAT 0.5 MG ATIVAN IV RECEIVED. AWAITING ADMISSION TO FLOOR.
[2019-09-10] MEDS ORDERED: LYSI500T8 PO (03:55)
[2019-09-10] MEDS ORDERED: THYR30TA PO (03:55)
[2019-09-10] MEDS ORDERED: TAUR500C PO (03:55)
[2019-09-10 04:26] VITALS: BP 144/77
[2019-09-10 06:40] VITALS: BP 129/84
[2019-09-10] MEDS: ALBUTEROL/IPRATROPIUM 2.5MG/0.5MG, 3 ML NPPB SCH ×4 (07:10→19:16)
[2019-09-10] MEDS ORDERED: ACETAMINOPHEN 325 MG TABLET PO PRN (08:00)
[2019-09-10] MEDS ORDERED: hydrALAzine 20 MG/ML, 1ML IVPush PRN (08:00)
[2019-09-10] MEDS: methylPREDNISolone SOD SUCC 40 MG/ML IV SCH ×2 (08:12→21:02)
[2019-09-10] MEDS: ALPRazolam 1MG TAB PO PRN ×2 (08:12→16:55)
[2019-09-10] MEDS: MULTIVITAMIN 1 TABLET PO SCH (08:12)
[2019-09-10] MEDS: GUAIFENESIN/DM 200-20MG, 10ML UDC PO PRN ×2 (08:12→15:03)
[2019-09-10] MEDS: ENOXAPARIN 40 MG/0.4 ML SQ SCH (08:13)
[2019-09-10 08:59] LABS: FREE T4 (FREE THYROXINE) 0.86 ng/dL (0.76-1.46)
[2019-09-10 12:37] VITALS: BP 99/66
[2019-09-10 19:07] VITALS: BP 91/56
[2019-09-11 01:03] VITALS: BP 118/77
[2019-09-11] MEDS ORDERED: THYROID 30 MG TABLET PO SCH (06:00)
[2019-09-11 07:13] LABS: ANION GAP 5 mmol/L (5-15); CHLORIDE 108 mmol/L (98-107); CREATININE 0.65 mg/dL (0.55-1.02)
[2019-09-11 07:19] LABS: MEAN CORPUSCULAR HEMOGLOBIN 29.4 pg (27.0-34.8); MEAN CORPUSCULAR HGB CONC 32.8 g/dL (32.4-35.8); MEAN CORPUSCULAR VOLUME 89.6 fL (80-100); PLATELET COUNT 233 x10^3/uL (130-400); RED CELL DISTRIBUTION WIDTH 14.4 % (9.6-15.2)
[2019-09-11 07:33] LABS: BASOPHILS # (AUTO) 0.01 x10^3/uL (0-0.1); BASOPHILS % (AUTO) 0 % (0-1); EOSINOPHILS % (AUTO) 0 % (1-7); LYMPHOCYTES # (AUTO) 0.54 x10^3/uL (1-3.4); LYMPHOCYTES % (AUTO) 6 % (22-44); MD SCAN; MONOCYTES # (AUTO) 0.21 x10^3/uL (0.2-0.8); MONOCYTES % (AUTO) 2 % (2-9); NEUTROPHILS # (AUTO) 8.72 x10^3/uL (1.8-6.8); NEUTROPHILS % (AUTO) 92 % (42-75)
[2019-09-11] MEDS: ALBUTEROL/IPRATROPIUM 2.5MG/0.5MG, 3 ML NPPB SCH ×4 (07:56→20:00)
[2019-09-11] MEDS: ENOXAPARIN 40 MG/0.4 ML SQ SCH (08:54)
[2019-09-11] MEDS: methylPREDNISolone SOD SUCC 40 MG/ML IV SCH ×2 (08:54→20:25)
[2019-09-11] MEDS: MULTIVITAMIN 1 TABLET PO SCH (08:54)
[2019-09-11 09:02] VITALS: BP 101/56
[2019-09-11] MEDS: ALPRazolam 1MG TAB PO PRN ×2 (09:58→17:26)
[2019-09-11] MEDS: GUAIFENESIN ER 600 MG TABLET PO SCH ×2 (10:30→20:25)
[2019-09-11] MEDS ORDERED: GUAIFENESIN ER 600 MG TABLET ONE (10:38)
[2019-09-11 15:16] VITALS: BP 98/63
[2019-09-11 20:55] VITALS: BP 101/68
[2019-09-11] MEDS ORDERED: GUAIFENESIN ER 600 MG TABLET PO SCH (21:00)
[2019-09-12] MEDS: ALPRazolam 1MG TAB PO PRN ×2 (01:31→09:36)
[2019-09-12 02:42] VITALS: BP 99/75
[2019-09-12] MEDS ORDERED: THYROID 30 MG TABLET PO SCH (06:00)
[2019-09-12] MEDS: ALBUTEROL/IPRATROPIUM 2.5MG/0.5MG, 3 ML NPPB SCH ×3 (06:48→14:34)
[2019-09-12] MEDS: GUAIFENESIN ER 600 MG TABLET PO SCH (09:00)
[2019-09-12 09:23] VITALS: BP 112/72
[2019-09-12] MEDS: methylPREDNISolone SOD SUCC 40 MG/ML IV SCH (10:00)
[2019-09-12] MEDS: MULTIVITAMIN 1 TABLET PO SCH (10:00)
[2019-09-12] MEDS: ENOXAPARIN 40 MG/0.4 ML SQ SCH (10:01)
[2019-09-12] MEDS ORDERED: OMNIPAQUE 350 MG/ML, 75ML BOTTLE ONE (10:26)
[2019-09-12] MEDS ORDERED: PRED20TA PO (14:02)
[2019-09-12] MEDS ORDERED: THYR30TA PO (14:12)
[2019-09-12 14:29] VITALS: BP 118/77
== END 2019-09-12 16:35 | disposition home or self-care (01) ==
LOC: ED 01:32 → INTOOBSV 02:48 → EDIP 02:48 → 4WST 04:21 → DCLOUNGE 09-12 16:17
PROVIDERS: ADMIT Family Medicine; ATTEND Family Medicine
DX: J44.1 Chronic obstructive pulmonary disease with (acute) exacerbation (principal); J96.10 Chronic respiratory failure, unspecified whether with hypoxia or hypercapnia; D72.829 Elevated white blood cell count, unspecified; E03.9 Hypothyroidism, unspecified; F41.1 Generalized anxiety disorder; Z82.5 Family history of asthma and other chronic lower respiratory diseases; Z87.891 Personal history of nicotine dependence; Z99.81 Dependence on supplemental oxygen; Z79.899 Other long term (current) drug therapy
CPT/HCPCS: 36415; 71045; 71260; 80048; 80053; 82962; 83735; 84439; 84443; 84481; 84484; 85025; 93005; 94640; 94644; 96361; 96372; 96374; 96375; 96376; 99285; G0378; J1650; J2060; J2920; J2930; J7030; Q9967

== ENCOUNTER 2019-12-19 09:15 | Emergency (ER) | payer MEDICAID ==
[~2019-12-19 09:15] MED LIST changes: +LYSI500T8 PO; +TAUR500C PO
--- NOTE | 2019-12-19 09:27 | NUR ---
THIS RN PRESENT DURING EKG. PT TOLERATED WITH NO COMPLICATIONS.
--- NOTE | 2019-12-19 09:56 | NUR ---
cardiac 5 lead, b/p, spo2 in place
[2019-12-19] MEDS ORDERED: ALBUTEROL/IPRATROPIUM 2.5MG/0.5MG, 3 ML NPPB ONE (10:30)
[2019-12-19 10:33] LABS: BASOPHILS # (AUTO) 0.05 x10^3/uL (0-0.1); BASOPHILS % (AUTO) 1 % (0-1); EOSINOPHILS # (AUTO) 0.14 x10^3/uL (0-0.4); EOSINOPHILS % (AUTO) 3 % (1-7); LYMPHOCYTES # (AUTO) 0.64 x10^3/uL (1-3.4); LYMPHOCYTES % (AUTO) 14 % (22-44); MD NO; MEAN CORPUSCULAR HGB CONC 33.4 g/dL (32.4-35.8); MEAN CORPUSCULAR VOLUME 89.9 fL (80-100); MEAN PLATELET VOLUME 6.6 fL (7.4-10.4); MONOCYTES # (AUTO) 0.28 x10^3/uL (0.2-0.8); MONOCYTES % (AUTO) 6 % (2-9); NEUTROPHILS # (AUTO) 3.41 x10^3/uL (1.8-6.8); NEUTROPHILS % (AUTO) 76 % (42-75); PLATELET COUNT 236 x10^3/uL (130-400); RED BLOOD COUNT 4.53 x10^6/uL (3.82-5.3); RED CELL DISTRIBUTION WIDTH 13.3 % (9.6-15.2)
[2019-12-19 10:41] LABS: ANION GAP 4 mmol/L (5-15); CHLORIDE 104 mmol/L (98-107); CREATININE 0.73 mg/dL (0.55-1.02)
[2019-12-19] MEDS ORDERED: ALBUTEROL/IPRATROPIUM 2.5MG/0.5MG, 3 ML ONE (10:57)
[2019-12-19 11:45] VITALS: BP 122/74
--- NOTE | 2019-12-19 11:50 | NUR ---
TASK RN NOTE: PT SITTING UP IN BED, HOLDING CELL PHONE. PT ASKING WHAT THE NEXT STEP IS. AWARE WAITING PULM PAGE. PT REPORTS WANTING TO GO HOME IF SHE DOESN'T HAVE PNEUMONIA.
== END 2019-12-19 12:29 | disposition home or self-care (01) ==
LOC: ED 11:24
DX: J44.1 Chronic obstructive pulmonary disease with (acute) exacerbation (principal); E03.9 Hypothyroidism, unspecified
CPT/HCPCS: 36415; 71045; 80048; 82040; 85025; 93005; 94640; 99285

== ENCOUNTER → 2019-12-21 | Outpatient (CLI) | payer MEDICAID | END | disposition home or self-care (01) | LOC: RAD 15:34 | PROVIDERS: ATTEND Nurse Practitioner Family | DX: M67.431 Ganglion, right wrist (principal) ==

== ENCOUNTER → 2020-01-20 | Outpatient (CLI) | payer MEDICAID | END | disposition home or self-care (01) | LOC: CFH 07:38 | PROVIDERS: ATTEND Nurse Practitioner Family | DX: K82.4 Cholesterolosis of gallbladder (principal) | CPT/HCPCS: 76700 ==

== ENCOUNTER 2020-01-27 15:07 | Outpatient (CLI) | payer MEDICAID ==
[~2020-01-27 15:07] MED LIST changes: -UBID60CA2 PO; +UBID60CA4 PO
== END 2020-01-27 23:59 | disposition home or self-care (01) ==
LOC: CFH 15:07
PROVIDERS: ATTEND Nurse Practitioner
DX: Z12.31 Encounter for screening mammogram for malignant neoplasm of breast (principal); N60.19 Diffuse cystic mastopathy of unspecified breast
CPT/HCPCS: 76641; 77063; 77067

== ENCOUNTER 2020-02-06 15:35 | Outpatient (CLI) | payer MEDICAID | END 2020-02-06 23:59 | disposition home or self-care (01) | LOC: CFH 15:35 | PROVIDERS: ATTEND Internal Medicine Cardiovascular Disease | DX: R06.02 Shortness of breath (principal); R07.9 Chest pain, unspecified; J44.9 Chronic obstructive pulmonary disease, unspecified; Z87.891 Personal history of nicotine dependence | CPT/HCPCS: 93308; 93321; 93325 ==

== ENCOUNTER 2020-02-29 13:53 | Emergency (ER) | payer MEDICAID ==
[~2020-02-29] VITALS: Ht 154.9 cm; Wt 60.0 kg
[~2020-02-29 13:53] MED LIST changes: +UBID60CA2 PO; -UBID60CA4 PO
--- NOTE | 2020-02-29 14:30 | NUR ---
PT HAS CO INCREASED SOB W COPD. STATES SHE REQUIRES O2 DURING THE DAY AND ONLY WEARS IT AT NIGHT. PT DENIES CP. STATES DAUGHTER WAS TESTED POSITIVE FOR COVID BUT HASNT BEEN AROUND HER. SWABBED FOR COVID. GASFITTER IN PLACE. 02 98% ON 2L
[2020-02-29] MEDS ORDERED: ALBUTEROL/IPRATROPIUM 2.5MG/0.5MG, 3 ML NPPB ONE (15:00)
[2020-02-29] MEDS ORDERED: methylPREDNISolone SOD SUCC 125 MG/2 ML IV ONE (15:00)
[2020-02-29] MEDS ORDERED: LORazepam 2 MG/ML, 1ML IVPush ONE (15:00)
[2020-02-29] MEDS ORDERED: LORazepam 2 MG/ML, 1ML ONE (15:01)
[2020-02-29 15:13] LABS: BASOPHILS # (AUTO) 0.04 x10^3/uL (0-0.1); BASOPHILS % (AUTO) 1 % (0-1); EOSINOPHILS # (AUTO) 0.11 x10^3/uL (0-0.4); EOSINOPHILS % (AUTO) 2 % (1-7); LYMPHOCYTES # (AUTO) 0.99 x10^3/uL (1-3.4); LYMPHOCYTES % (AUTO) 20 % (22-44); MD NO; MEAN CORPUSCULAR HEMOGLOBIN 29.3 pg (27.0-34.8); MEAN CORPUSCULAR HGB CONC 32.7 g/dL (32.4-35.8); MEAN CORPUSCULAR VOLUME 89.8 fL (80-100); MEAN PLATELET VOLUME 6.9 fL (7.4-10.4); MONOCYTES % (AUTO) 6 % (2-9); NEUTROPHILS # (AUTO) 3.61 x10^3/uL (1.8-6.8); NEUTROPHILS % (AUTO) 71 % (42-75); PLATELET COUNT 234 x10^3/uL (130-400); RED BLOOD COUNT 4.38 x10^6/uL (3.82-5.3); RED CELL DISTRIBUTION WIDTH 13.8 % (9.6-15.2)
[2020-02-29 15:16] LABS: ALANINE AMINOTRANSFERASE 32 U/L (12-78); ANION GAP 5 mmol/L (5-15); C-REACTIVE PROTEIN, QUANT 0.15 mg/dL (0.02-0.49); CALCIUM 8.6 mg/dL (8.5-10.1); CHLORIDE 103 mmol/L (98-107); CREATININE 0.59 mg/dL (0.55-1.02)
[2020-02-29 15:21] LABS: ALKALINE PHOSPHATASE 66 U/L (45-117); BILIRUBIN,TOTAL 0.3 mg/dL (0.2-1.0); TOTAL PROTEIN 6.9 g/dL (6.4-8.2)
--- NOTE | 2020-02-29 15:34 | NUR ---
PT EXTREMELY ANXIOUS AND TEARFUL. MEDICATED FOR ANXIETY. LABS AND CULTURES COMPLETE. PT REFUSING STERIODS. STATES IT GIVES HER SEVERE REACTIONS
[2020-02-29 15:51] LABS: D-DIMER (DIC) 0.26 ug/mlFEU (0.00-0.52); PROTIME 10.1 Seconds (9.6-11.5)
--- NOTE | 2020-02-29 16:26 | NUR ---
PT AMBULATED TO C W OUT DIFFICULTY. VSS
[2020-02-29] MEDS ORDERED: ALBUTEROL/IPRATROPIUM 2.5MG/0.5MG, 3 ML ONE (17:13)
--- NOTE | 2020-02-29 17:30 | NUR ---
MEDICATED PER ORDERS. PT VSS.
--- NOTE | 2020-02-29 18:40 | NUR ---
Patient/Caregiver given discharge instructions and they have confirmed that they understand the instructions. Patient ambulatory with steady gait.
[2020-02-29 18:41] VITALS: BP 14/89
== END 2020-02-29 18:46 | disposition other institution (70) ==
LOC: ED 14:38
DX: J44.1 Chronic obstructive pulmonary disease with (acute) exacerbation (principal); Z20.828 Contact with and (suspected) exposure to other viral communicable diseases; R05 Cough; R50.9 Fever, unspecified; R00.0 Tachycardia, unspecified; J02.9 Acute pharyngitis, unspecified; E03.9 Hypothyroidism, unspecified; Z87.891 Personal history of nicotine dependence
CPT/HCPCS: 36415; 71045; 80053; 82728; 82962; 83605; 83615; 84145; 85025; 85049; 85379; 85384; 85610; 85730; 86140; 87040; 87635; 93005; 94640; 96374; 99285; J2060

== ENCOUNTER 2020-03-04 06:51 | Emergency (ER) | payer MEDICAID ==
[~2020-03-04] VITALS: Ht 154.9 cm; Wt 55.0 kg
[~2020-03-04 06:51] MED LIST changes: -UBID60CA2 PO; +UBID60CA4 PO
[2020-03-04] MEDS ORDERED: ALBUTEROL/IPRATROPIUM 2.5MG/0.5MG, 3 ML ONE (07:22)
[2020-03-04] MEDS ORDERED: ALBUTEROL SULFATE 2.5MG/0.5ML ONE (07:22)
--- NOTE | 2020-03-04 07:25 | NUR ---
PT BIB EMS FOR ANXIETY AND SOB. WAS SEEN RECENTLY IN ER 2 DAYS AGO FOR SAME COMPLAINT. PT ON 2L O2, SAT 97%. PT EXTREMELY ANXIOUS, NOT IN RESP DISTRESS. MD AT BEDSIDE. DENIES CP.
[2020-03-04] MEDS ORDERED: ALBUTEROL/IPRATROPIUM 2.5MG/0.5MG, 3 ML NEB ONE (07:30)
[2020-03-04] MEDS ORDERED: ALBUTEROL SULFATE 2.5MG/0.5ML NPPB ONE (07:30)
--- NOTE | 2020-03-04 08:06 | NUR ---
breathing treatments complete. pt tolerated. ua sent
[2020-03-04 08:12] LABS: ANION GAP 7 mmol/L (5-15); CALCIUM 9.5 mg/dL (8.5-10.1); CHLORIDE 103 mmol/L (98-107); CREATININE 0.72 mg/dL (0.55-1.02)
[2020-03-04 08:23] LABS: BASOPHILS % (AUTO) 0 % (0-1); EOSINOPHILS # (AUTO) 0.01 x10^3/uL (0-0.4); EOSINOPHILS % (AUTO) 0 % (1-7); LYMPHOCYTES # (AUTO) 0.33 x10^3/uL (1-3.4); LYMPHOCYTES % (AUTO) 7 % (22-44); MD NO; MEAN CORPUSCULAR HEMOGLOBIN 29.5 pg (27.0-34.8); MEAN CORPUSCULAR HGB CONC 33.2 g/dL (32.4-35.8); MEAN PLATELET VOLUME 7.2 fL (7.4-10.4); MONOCYTES # (AUTO) 0.02 x10^3/uL (0.2-0.8); MONOCYTES % (AUTO) 0 % (2-9); NEUTROPHILS # (AUTO) 4.39 x10^3/uL (1.8-6.8); NEUTROPHILS % (AUTO) 92 % (42-75); PLATELET COUNT 225 x10^3/uL (130-400); RED BLOOD COUNT 4.49 x10^6/uL (3.82-5.3); RED CELL DISTRIBUTION WIDTH 13.6 % (9.6-15.2)
[2020-03-04 08:32] VITALS: BP 135/82
[2020-03-04 08:41] LABS: AMPHETAMINE SCREEN, URINE Negative (Negative); BARBITURATE SCREEN, URINE Negative (Negative); BENZODIAZEPINE SCREEN, URINE Positive (Negative); COCAINE SCREEN, URINE Negative (Negative); METHADONE SCREEN, URINE Negative (Negative); OPIATE SCREEN, URINE Negative (Negative)
[2020-03-04 08:48] LABS: CANNABINOID SCREEN, URINE Negative (Negative)
--- NOTE | 2020-03-04 09:21 | NUR ---
Patient/Caregiver given discharge instructions and they have confirmed that they understand the instructions. Patient ambulatory with steady gait.
== END 2020-03-04 09:24 | disposition home or self-care (01) ==
LOC: ED 09:01
DX: J44.9 Chronic obstructive pulmonary disease, unspecified (principal); F41.1 Generalized anxiety disorder; R06.4 Hyperventilation; R13.10 Dysphagia, unspecified; R00.0 Tachycardia, unspecified; E03.9 Hypothyroidism, unspecified; F17.200 Nicotine dependence, unspecified, uncomplicated
CPT/HCPCS: 36415; 71045; 80048; 80307; 85025; 93005; 94640; 99285

== ENCOUNTER 2020-03-15 20:19 | Emergency (ER) | payer MEDICAID ==
[~2020-03-15] VITALS: Ht 154.9 cm; Wt 62.0 kg
--- NOTE | 2020-03-15 20:43 | NUR ---
PATIENT REQUESTED TO BE TAKEN TO THE RESTROOM, STATING "I'M TOO WEAK TO WALK". PATIENT AMBULATORY TO RESTROOM FROM WHEELCHAIR WITHOUT COMPLICATIONS.
[2020-03-15 22:17] VITALS: BP 140/85
--- NOTE | 2020-03-15 22:21 | NUR ---
PATIENT WAS SCREAMING IN LOBBY FOR NURSE. PATIENT STATED THAT HER BLOOD SUGAR WAS LOW, BLOOD GLUCOSE CHECKED IN TRIAGE RESULTED IN 83. PATIENT STATED THAT SHE COULD NOT SWALLOW PATIENT WAS FOUND DRINKING BEVERAGE IN LOBBY. VITAL SIGNS OBTAINED, VITAL SIGNS STABLE.
--- NOTE | 2020-03-15 22:45 | NUR ---
PT YELLING IN LOBBY, PUSHES THROUGH LOCKED DOOR WITH ANOTHER VISITOR, DEMANDING BREATHING TREATMENT, PT IS CURRENTLY AMBULATORY WITH WALKER, APOLOGIES GIVEN FOR THE WAIT, PT AWARE THAT WE ARE VERY BUSY, PT STATES THAT SHE NEEDS HER NIGHTTIME MEDS. BACK TO [facility] AT THIS TIME
--- NOTE | 2020-03-15 23:06 | NUR ---
THIS IS A 59Y F THAT COMES IN FOR "ANXIETY" AND FEELING WEAK AND SHAKING AND NOT GETTING HER MEDS AFTER D/C FROM [facility] TODAY. PT SPEAKING IN FULL SENTENCES NADN. CONNECTED TO PULSE OX PT HAS REMOVED OXYGEN BUT HAS BEEN SATTING 93-94%
[2020-03-15 23:15] LABS: BASOPHILS # (AUTO) 0.05 x10^3/uL (0-0.1); BASOPHILS % (AUTO) 1 % (0-1); EOSINOPHILS % (AUTO) 2 % (1-7); LYMPHOCYTES # (AUTO) 0.82 x10^3/uL (1-3.4); LYMPHOCYTES % (AUTO) 15 % (22-44); MD NO; MEAN CORPUSCULAR HEMOGLOBIN 29.7 pg (27.0-34.8); MEAN CORPUSCULAR HGB CONC 33.1 g/dL (32.4-35.8); MEAN CORPUSCULAR VOLUME 89.9 fL (80-100); MEAN PLATELET VOLUME 6.3 fL (7.4-10.4); MONOCYTES # (AUTO) 0.46 x10^3/uL (0.2-0.8); MONOCYTES % (AUTO) 8 % (2-9); NEUTROPHILS # (AUTO) 4.14 x10^3/uL (1.8-6.8); NEUTROPHILS % (AUTO) 74 % (42-75); PLATELET COUNT 263 x10^3/uL (130-400); RED BLOOD COUNT 4.51 x10^6/uL (3.82-5.3); RED CELL DISTRIBUTION WIDTH 13.8 % (9.6-15.2)
[2020-03-15 23:26] LABS: ALANINE AMINOTRANSFERASE 40 U/L (12-78); ALBUMIN 3.8 g/dL (3.4-5.0); ANION GAP 7 mmol/L (5-15); CALCIUM 8.8 mg/dL (8.5-10.1); CHLORIDE 99 mmol/L (98-107); CREATININE 0.69 mg/dL (0.55-1.02)
[2020-03-15 23:30] LABS: ALKALINE PHOSPHATASE 70 U/L (45-117); BILIRUBIN,TOTAL 0.6 mg/dL (0.2-1.0); TOTAL PROTEIN 6.9 g/dL (6.4-8.2)
[2020-03-15] MEDS ORDERED: DIPHENHYDRAMINE 50 MG/ML, 1ML ONE (23:49)
--- NOTE | 2020-03-15 23:59 | NUR ---
PT IN HALLWAY SCREAMING OH MY GOD MY HEART STOPPED BREATHING, PT SHOUTING THAT SHE IS SCARED TO THE MONITOR HAS FLAT LINES, PT HAS DISCONNECTED ALL MONITORING.
[2020-03-16] MEDS ORDERED: DIPHENHYDRAMINE 50 MG/ML, 1ML IVPush ONE
--- NOTE | 2020-03-16 00:10 | NUR ---
PT HEARD TO BE YELLING AT PA AT DESK, PT NOT WEARING MASK, DEMANDING BREATHING TREATMENT, PT REMINDED OF NEED TO PLEASE WEAR MASK AND THAT SHE NEEDS TO WAIT IN HER ROOM, ROAMING HALWAYS YELLING AT STAFF IS NOT AN ACCEPTABLE BEHAVIOUR. PT BACK TO ROOM AT THIS TIME.
--- NOTE | 2020-03-16 00:12 | NUR ---
PT AT NURSES STATION SHOUTING AT STAFF, PT EDUCATED THAT SHE MUST REMAIN IN HER ROOM AND KEEP MASK ON.
--- NOTE | 2020-03-16 00:37 | NUR ---
Patient/Caregiver given discharge instructions and they have confirmed that they understand the instructions. Patient ambulatory with steady gait. PIV DC PRIOR TO LEAVING FACILITY
== END 2020-03-16 00:38 | disposition home or self-care (01) ==
LOC: ED 22:30
DX: F41.1 Generalized anxiety disorder (principal); I48.91 Unspecified atrial fibrillation; R10.9 Unspecified abdominal pain; R53.1 Weakness; J43.9 Emphysema, unspecified; E03.9 Hypothyroidism, unspecified; Z87.891 Personal history of nicotine dependence
CPT/HCPCS: 36415; 71045; 80053; 82962; 83880; 85025; 93005; 96374; 99285; J1200

== ENCOUNTER → 2021-02-14 | Outpatient (CLI) | payer MEDICAID ==
[~2021-02-14] MED LIST changes: -ASPI-515 PO; -ASPI-650 PO; +ASPI-963 PO; +ASPI325T20 PO; -OXYC5TAB3 PO; +OXYC5TAB98 PO; -VITA10004 PO; +VITA100087 PO
== END | disposition home or self-care (01) ==
LOC: CFH 15:14
PROVIDERS: ATTEND Nurse Practitioner Family
DX: M51.37 Other intervertebral disc degeneration, lumbosacral region (principal); M47.816 Spondylosis without myelopathy or radiculopathy, lumbar region; R53.1 Weakness; K82.4 Cholesterolosis of gallbladder; M25.78 Osteophyte, vertebrae; M48.07 Spinal stenosis, lumbosacral region
CPT/HCPCS: 72148; 76700

== ENCOUNTER 2021-02-20 13:24 | Outpatient (CLI) | payer MEDICAID | END 2021-02-20 23:59 | disposition home or self-care (01) | LOC: CFH 13:24 | PROVIDERS: ATTEND Nurse Practitioner | DX: Z12.31 Encounter for screening mammogram for malignant neoplasm of breast (principal); Z12.39 Encounter for other screening for malignant neoplasm of breast | CPT/HCPCS: 76641; 77063; 77067 ==